=== PATIENT | female | born 1975 | race Caucasian/White ===

== ENCOUNTER 2017-08-01 22:33 | Emergency (ER) | payer BC ==
[~2017-08-01] VITALS: Ht 162.6 cm; Wt 56.7 kg
[2017-08-01 22:51] VITALS: BP 139/76
--- NOTE | 2017-08-01 22:52 | NUR ---
PT AMBULATORY TO ER BED 12. BIB SELF C/O ABD PAIN AND BLOOD IN URINE X 9 HOURS. DENIES N/V. PT PLACED IN GOWN AND ON SILVICULTURE FORESTER. VSS/RESP EVEN UNLABORED/NAD NOTED/SKIN WARM AND DRY/AFEBRILE/AOX4. AWAITING MD CARDONA.
--- NOTE | 2017-08-01 22:53 | NUR ---
AT BEDSIDE FOR EVAL.
--- NOTE | 2017-08-01 22:54 | NUR ---
URINE SPECIMEN OBTAINED AND SENT TO THE LAB.
[2017-08-01 23:01] LABS: APPEARANCE,URINE CLOUDY (CLEAR); BILIRUBIN,URINE NEGATIVE (NEGATIVE); BLOOD, URINE 3+ Ery/uL (NEGATIVE); COLOR,URINE YELLOW (YELLOW); KETONES,URINE NEGATIVE (NEGATIVE); LEUKOCYTE ESTERASE ,URINE 1+ (NEGATIVE); NITRITE, URINE POSITIVE (NEGATIVE); PROTEIN,URINE 2+ mg/dl (NEGATIVE); UGLUCOSE NEGATIVE (NEGATIVE); UROBILINOGEN,URINE 0.2 EU/dL (0.2)
[2017-08-01 23:14] LABS: BACTERIA,URINE None seen /HPF (None Seen); RBC,URINE 21-50 /HPF (0-2); SQUAMOUS EPITHELIAL CELL,UR Moderate /HPF (None Seen)
--- NOTE | 2017-08-01 23:35 | NUR ---
Patient discharged to home in stable condition. Written and verbal after care instructions given. Patient verbalizes understanding of instruction. Patient ambulatory with a steady gait.
== END 2017-08-01 23:37 | disposition home or self-care (01) ==
LOC: ER 22:40
DX: N39.0 Urinary tract infection, site not specified (principal)
CPT/HCPCS: 81000-TC; 84703-TC; 87086-TC; 87186-TC; A4606; Z7610